=== PATIENT | male | born 1980 | race Hispanic/Latino ===

== ENCOUNTER 2023-10-19 13:36 | Outpatient (CLI) | payer OTHER | END 2023-10-19 13:37 | disposition home or self-care (01) | LOC: MADRAD 13:36 | DX: K58.1 Irritable bowel syndrome with constipation (principal) | CPT/HCPCS: 74019 ==

== ENCOUNTER 2023-10-19 19:36 | Emergency (ER) | payer OTHER, SELFPAY ==
[~2023-10-19 19:36] MED LIST: Iopamidol 370 76% 100 ML VIAL ONE
[2023-10-19 20:32] LABS: #Eosinphils 0.1 thou/uL (0.0-0.7); #Lymphocytes 1.4 thou/uL (1.20-3.40); #Monocytes 0.6 thou/uL (0.11-0.59); #Neutrophils 5.6 thou/uL (1.40-6.50); %Basophils 0.6 % (0.0-1.0); %Eosinophils 0.9 % (0.0-10.0); %Lymphocytes 17.9 % (21.0-51.0); %Monocytes 7.5 % (0.0-10.0); %Neutrophils 73.2 % (42.0-75.0); Hematocrit 42.4 % (42.0-52.0); Hemoglobin 13.9 g/dL (14.0-18.0); Mean Corpuscular HGB CONC 32.7 g/dL (32.0-36.0); Mean Corpuscular Hemoglobin 30.7 pg (27.0-31.0); Mean Platelet Volume 6.1 fL (7.4-10.4); Platelet Count 231 10x3/uL (130-400); RBC Distribution Width 12.3 % (11.5-14.5); Red Blood Cell (RBC) Count 4.51 mill/uL (4.70-6.10); White Blood Cell (WBC) Count 7.6 10x3/uL (4.8-10.8)
[2023-10-19 20:51] LABS: ALT (SGPT) 37 U/L (8-55); AST (SGOT) 38 U/L (5-34); Albumin 4.5 g/dL (3.5-5.0); Alkaline Phosphatase 65 U/L (40-110); Anion Gap 18 mmol/L (10-20); BUN (Urea Nitrogen) 8 mg/dL (8.9-20.6); Bilirubin, Total 0.4 mg/dL (0.2-1.2); Calc. Creatinine Clearance 0 mL/min (70-130); Calcium 9.5 mg/dL (7.8-10.44); Carbon Dioxide 22 mmol/L (22-29); Chloride 102 mmol/L (98-107); Estimated GFR 119; Globulin 3.4 g/dL (2.4-3.5); Glucose 90 mg/dL (70-105); Lipase 37 U/L (8-78); Protein, Total 7.9 g/dL (6.0-8.3); Sodium 138 mmol/L (136-145)
[2023-10-19] MEDS ORDERED: Sodium Chloride 0.9% 1,000 ML ONE (20:53)
[2023-10-19] MEDS ORDERED: Ketorolac Tromethamine 30 MG (1 mL) VIAL ONE (20:53)
[2023-10-19 21:15] LABS: Bilirubin Negative (Negative); Blood, Urine Negative (Negative); Clarity Clear (Clear); Glucose, Urine (Dipstick) Negative (Negative); Ketone, Urine Negative (Negative); Leukocyte Negative (Negative); Nitrite Negative (Negative); Protein, Urine (Dipstick) Negative (Neg-Trace); Specific Gravity, Urine 1.015 (1.005-1.030); Urobilinogen 0.2 mg/dL (Less than 2)
[2023-10-19 21:16] LABS: CAUTI Indications for Culture Pelvic or flank pain; RBC/HPF 0-3 HPF (0-3); Squamous Epithelial 0-3 HPF (0-3); WBC/HPF None Seen HPF (0-3)
[2023-10-19 21:17] LABS: Urine Culture Reflex No No
== END 2023-10-19 21:48 | disposition home or self-care (01) ==
LOC: MADERS 19:36
DX: N28.9 Disorder of kidney and ureter, unspecified (principal); R10.31 Right lower quadrant pain; K21.9 Gastro-esophageal reflux disease without esophagitis; Z79.899 Other long term (current) drug therapy
CPT/HCPCS: 74177; 80053; 81001; 83690; 85025; 93005; 96374; J1885; J7050; Q9967

== ENCOUNTER 2025-01-30 10:25 | Outpatient (CLI) | payer OTHER | END 2025-01-30 10:26 | disposition home or self-care (01) | LOC: MADRAD 10:25 | PROVIDERS: ATTEND Nurse Practitioner Family | DX: M54.50 Low back pain, unspecified (principal); T14.8XXA Other injury of unspecified body region, initial encounter | CPT/HCPCS: 72100 ==